=== PATIENT | female | born 1930 | race Caucasian/White ===

== ENCOUNTER 2017-09-06 01:09 | Emergency (ER) | payer MEDICARE, BC ==
[2017-09-06] MEDS ORDERED: Sodium Chloride 0.9% 10 ML Syringe FLUSH PRN (01:55)
[2017-09-06] MEDS ORDERED: Iopamidol 612 MG/ML 75 ML Bottle IVPUSH ONE (02:40)
[2017-09-06] MEDS ORDERED: Morphine 2 MG/ML Syringe IVPUSH ONE (02:45)
[2017-09-06] MEDS ORDERED: Ondansetron 4 MG/2 ML SDV IV ONE (02:45)
--- NOTE | 2017-09-06 03:38 | EDM.PDOC ---
ED HPI GENERAL MEDICAL PROBLEM - General Chief Complaint: Abdominal Pain Stated Complaint: SEVERE STOMACH PAIN [id number] Time Seen by Provider: 09/06/17 01:40 Source of Information: Reports: Patient History Limitations: Reports: No Limitations - History of Present Illness INITIAL COMMENTS - FREE TEXT/NARRATIVE: Patient comes emergency Department today with complaints of generalized abdominal pain and more in the right lower quadrant. Been going on for the past 2 days. She was seen in the clinic on Thursday and had some lab work and was told that there was no findings. She has continued abdominal pain. She did have bowel movement this morning which she states was somewhat small not hard and was easy to pass. She denies any fever or chills. She denies any chest pain shortness of breath or difficulty breathing. She denies any nausea or vomiting. She does complain of some bloating sensation. No heartburn. She denies any hematuria dysuria or urinary frequency. She has not tried any Tylenol or ibuprofen for her pain. Abdominal Pain Score (Numeric/FACES): 5 - Related Data Allergies Allergy/AdvReac Type Severity Reaction Status Date / Time codeine Allergy Other Verified 09/06/17 01:27 Penicillins Allergy Swelling Verified 09/06/17 01:27 Home Meds: Home Meds Aspirin 81 mg PO DAILY 09/06/17 [History] Hydrochlorothiazide 25 mg PO DAILY 09/06/17 [History] Lutein/Minerals/Vit A,C & E [Ocuvite] 1 tab PO DAILY 09/06/17 [History] Methyldopa 25 mg PO DAILY 09/06/17 [History] amLODIPine [Norvasc] 5 mg PO DAILY 09/06/17 [History] atorvaSTATin [Lipitor] 10 mg PO DAILY 09/06/17 [History] Past Medical History HEENT History: Reports: Impaired Vision Cardiovascular History: Reports: Hypertension Other Respiratory History: Abnormal CXR with CT done here in [place]. Seen specialist in [place] with another CT done. Told nothing to do right now but is to monitor and have another evaluation in 6 months. 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 eye - Past Surgical History HEENT Surgical History: Reports: Cataract Surgery GI Surgical History: Reports: Other (See Below) Other GI Surgeries/Procedures: hiatel hernia Musculoskeletal Surgical History: Reports: None Social & Family History - Family History Family Medical History: Noncontributory - Tobacco Use Smoking Status *Q: Never Smoker Second Hand Smoke Exposure: No - Recreational Drug Use Recreational Drug Use: No ED ROS GENERAL - Review of Systems Review Of Systems: ROS reveals no pertinent complaints other than HPI. ED EXAM, GI/ABD - Physical Exam Exam: See Below Exam Limited By: No Limitations General Appearance: Alert, WD/WN, No Apparent Distress Ears: Normal External Exam Nose: Normal Inspection Throat/Mouth: Normal Inspection, Normal Lips, Normal Teeth Head: Atraumatic, Normocephalic Neck: Normal Inspection, Supple, Non-Tender Respiratory/Chest: No Respiratory Distress, Lungs Clear, Normal Breath Sounds, No Accessory Muscle Use Cardiovascular: Normal Peripheral Pulses, Regular Rate, Rhythm GI/Abdominal Exam: Normal Bowel Sounds, Soft, Guarding, Rebound (Rebound tenderness throughout the abdomen.), Tender (Generalized tenderness throughout the abdomen.). No: Distended, Rigid, Hernia, Mass, Splenomegaly (Female) Exam: Deferred Rectal (Female) Exam: Deferred Back Exam: Normal Inspection, Full Range of Motion. No: CVA Tenderness (L), CVA Tenderness (R) Extremities: Normal Inspection, Normal Range of Motion, Non-Tender, No Pedal Edema Neurological: Alert, Oriented, CN II-XII Intact Psychiatric: Normal Affect, Normal Mood Skin Exam: Warm, Dry, Intact, Normal Color, No Rash Lymphatic: No Adenopathy Course - Vital Signs Last Recorded V/S: Last Vital Signs Temp 36.9 C 09/06/17 02:55 Pulse 69 09/06/17 02:55 Resp 16 09/06/17 02:55 BP 131/51 L 09/06/17 02:55 Pulse Ox 92 L 09/06/17 02:55 - Orders/Labs/Meds Orders: Active Orders 24 hr Category Date Time Status Peripheral IV Care [RC] . DIRECTED Care 09/06/17 01:55 Active Abdomen Pelvis w Cont [CT] Urgent Exams 09/06/17 01:55 Taken CULTURE URINE [RM] Stat Lab 09/06/17 03:28 Ordered Sodium Chloride 0.9% [Saline Flush] Med 09/06/17 01:55 Active 10 ml FLUSH ASDIRECTED PRN Peripheral IV Insertion Adult [OM.PC] Stat Oth 09/06/17 01:54 Ordered Medication Orders Sodium Chloride (Saline Flush) 10 ml FLUSH ASDIRECTED PRN PRN Reason: Keep Vein Open Last Admin: 09/06/17 02:52 Dose: 10 ml Labs: Laboratory Tests 09/06/17 09/06/17 09/06/17 Range/Units 01:35 01:45 01:45 WBC 11.5 H (5.0-10.0) 10^3/uL RBC 4.67 (4.2-5.4) 10^6/uL Hgb 13.6 (12.0-16.0) g/dL Hct 40.4 (37.0-47.0) % MCV 86.5 (80-100) fL MCH 29.1 (27.0-34.0) pg MCHC 33.7 (33.0-35.0) g/dL Plt Count 227 (150-450) 10^3/uL Neut % (Auto) 66.4 (42.2-75.2) % Lymph % (Auto) 19.0 L (20.5-50.1) % Geary % (Auto) 9.9 H (2-8) % Eos % (Auto) 4.0 H (1.0-3.0) % Baso % (Auto) 0.7 (0.0-1.0) % Sodium 137 (135-145) mmol/L Potassium 3.5 L (3.6-5.0) mmol/L Chloride 101 (101-111) mmol/L Carbon Dioxide 27.0 (21.0-31.0) mmol/L Anion Gap 12.5 BUN 21 H (7-18) mg/dL Creatinine 0.9 (0.6-1.3) mg/dL Est Cr Clr Drug Dosing 35.74 mL/min Estimated GFR (MDRD) 59 BUN/Creatinine Ratio 23.33 Glucose 104 (74-105) mg/dL Lactic Acid (0.5-2.2) mmol/L Calcium 9.1 (8.4-10.2) mg/dl Total Bilirubin 1.0 (0.2-1.0) mg/dL AST 25 (10-42) IU/L ALT 19 (10-60) IU/L Alkaline Phosphatase 58 (42-121) IU/L C-Reactive Protein (0.0-1.3) mg/dL Total Protein 7.0 (6.7-8.2) g/dl Albumin 4.1 (3.2-5.5) g/dl Globulin 2.9 Albumin/Globulin Ratio 1.41 Urine Color Yellow (YELLOW) Urine Appearance Cloudy (CLEAR) Urine pH 6.0 (5.0-9.0) Ur Specific Mansfield 1.015 (1.005-1.030) Urine Protein Negative (NEGATIVE) Urine Glucose (UA) Negative (NEGATIVE) Urine Ketones Negative (NEGATIVE) Urine Occult Blood Negative (NEGATIVE) Urine Nitrite Negative (NEGATIVE) Urine Bilirubin Negative (NEGATIVE) Urine Urobilinogen 0.2 (0.2-1.0) mg/dL Ur Leukocyte Esterase Trace H (NEGATIVE) Urine RBC 0-5 /HPF Urine WBC 5-10 H (0-5/HPF) /HPF Ur Epithelial Cells Many H /HPF Urine Bacteria Many H (0-FEW/HPF) /HPF Hyaline Casts Few H /LPF 09/06/17 09/06/17 Range/Units 01:45 01:45 WBC (5.0-10.0) 10^3/uL RBC (4.2-5.4) 10^6/uL Hgb (12.0-16.0) g/dL Hct (37.0-47.0) % MCV (80-100) fL MCH (27.0-34.0) pg MCHC (33.0-35.0) g/dL Plt Count (150-450) 10^3/uL Neut % (Auto) (42.2-75.2) % Lymph % (Auto) (20.5-50.1) % Geary % (Auto) (2-8) % Eos % (Auto) (1.0-3.0) % Baso % (Auto) (0.0-1.0) % Sodium (135-145) mmol/L Potassium (3.6-5.0) mmol/L Chloride (101-111) mmol/L Carbon Dioxide (21.0-31.0) mmol/L Anion Gap BUN (7-18) mg/dL Creatinine (0.6-1.3) mg/dL Est Cr Clr Drug Dosing mL/min Estimated GFR (MDRD) BUN/Creatinine Ratio Glucose (74-105) mg/dL Lactic Acid 0.9 (0.5-2.2) mmol/L Calcium (8.4-10.2) mg/dl Total Bilirubin (0.2-1.0) mg/dL AST (10-42) IU/L ALT (10-60) IU/L Alkaline Phosphatase (42-121) IU/L C-Reactive Protein 0.5 (0.0-1.3) mg/dL Total Protein (6.7-8.2) g/dl Albumin (3.2-5.5) g/dl Globulin Albumin/Globulin Ratio Urine Color (YELLOW) Urine Appearance (CLEAR) Urine pH (5.0-9.0) Ur Specific Mans[place] (1.005-1.030) Urine Protein (NEGATIVE) Urine Glucose (UA) (NEGATIVE) Urine Ketones (NEGATIVE) Urine Occult Blood (NEGATIVE) Urine Nitrite (NEGATIVE) Urine Bilirubin (NEGATIVE) Urine Urobilinogen (0.2-1.0) mg/dL Ur Leukocyte Esterase (NEGATIVE) Urine RBC /HPF Urine WBC (0-5/HPF) /HPF Ur Epithelial Cells /HPF Urine Bacteria (0-FEW/HPF) /HPF Hyaline Casts /LPF Meds: Medications Generic Name Dose Route Start Last Admin Trade Name Freq PRN Reason Stop Dose Admin Sodium Chloride 10 ml 09/06/17 01:55 09/06/17 02:52 Saline Flush FLUSH 10 ml ASDIRECTED PRN Administration Keep Vein Open Discontinued Medications Generic Name Dose Route Start Last Admin Trade Name Freq PRN Reason Stop Dose Admin Iopamidol 75 ml 09/06/17 02:40 09/06/17 02:41 Isovue-300 (61%) IVPUSH 09/06/17 02:41 75 ml ONETIME ONE Administration Morphine Sulfate 2 mg 09/06/17 02:45 09/06/17 02:54 Morphine IVPUSH 09/06/17 02:46 2 mg ONETIME ONE Administration Ondansetron HCl 4 mg 09/06/17 02:45 09/06/17 02:51 Zofran IV 09/06/17 02:46 4 mg ONETIME ONE Administration - Radiology Interpretation Free Text/Narrative:: CT abdomen and pelvis per radiology. Subtle stranding in the mesenteric fat of the right lower quadrant of the abdomen. Nonspecific. Appendix is not identified in this region. Sigmoid colon is near by but noninflamed diverticulum. epilpoic appendigitis would be a consideration. - Re-Assessments/Exams Free Text/Narrative Re-Assessment/Exam: 09/06/17 03:43 The patient did receive some morphine as well as Zofran with complete resolution of her abdominal pain. Her laboratory evaluation is rather unremarkable. I did relate the findings of the CT scan to the abdomen. I do see some constipation in the rectal vault or increased amount of stool as well as a stranding in the right lower quadrant. The treatment for epiploic appendigitis at this time would be nonsteroidal anti-inflammatories. I will also send her home with some MiraLAX for constipation which may help her pain as well. Any new or worse symptoms she has to be rechecked. Especially fever or increased pain and vomiting. She was comfortable with this plan and questions were answered. She was given some normal saline as well for hydration and to flush her kidneys following the contrast administration. Departure - Departure Time of Disposition: 03:32 Disposition: Home, Self-Care 01 Clinical Impression: Abdominal pain Qualifiers: Abdominal location: generalized Qualified Code(s): R10.84 - Generalized abdominal pain Constipation Qualifiers: Constipation type: unspecified constipation type Qualified Code(s): K59.00 - Constipation, unspecified - Discharge Information Instructions: Abdominal Pain, Adult, [id number], Pain Medicine Instructions, [id number], Constipation, Adult Additional Instructions: Ibuprofen 600mg by mouth every 8 hrs for four to six days. Take with food. Increase fluid intake over the next few days as well. Miralax OTC. 17grams or one capful in a large glass of water once a day until easy smooth bowel movement discontinue then. May also use Tylenol for pain as well. Return to the ED if new or worsening symptoms. Follow up with primary care provider in the next 6 days if not improving sooner if worse. - My Orders Last 24 Hours: My Active Orders 09/06/17 01:54 Peripheral IV Insertion Adult [OM.PC] Stat 09/06/17 01:55 Peripheral IV Care [RC] . DIRECTED Abdomen Pelvis w Cont [CT] Urgent Sodium Chloride 0.9% [Saline Flush] 10 ml FLUSH ASDIRECTED PRN 09/06/17 03:28 CULTURE URINE [RM] Stat - Assessment/Plan Last 24 Hours: My Active Orders 09/06/17 01:54 Peripheral IV Insertion Adult [OM.PC] Stat 09/06/17 01:55 Peripheral IV Care [RC] . DIRECTED Abdomen Pelvis w Cont [CT] Urgent Sodium Chloride 0.9% [Saline Flush] 10 ml FLUSH ASDIRECTED PRN 09/06/17 03:28 CULTURE URINE [RM] Stat Assessment:: RLQ pain, normal appendix on CT, ? epiplogic appendigitis. Constipation. Plan: Ibuprofen 600mg by mouth every 8 hrs for four to six days. Take with food. Increase fluid intake over the next few days as well. Miralax OTC. 17grams or one capful in a large glass of water once a day until easy smooth bowel movement discontinue then. May also use Tylenol for pain as well. Return to the ED if new or worsening symptoms. Follow up with primary care provider in the next 6 days if not improving sooner if worse.
[2017-09-06] MEDS ORDERED: Sodium Chloride 0.9% 1,000 ML IV ONE (03:39)
[2017-09-06] MEDS ORDERED: Sodium Chloride 0.9% 500 ML IV SCH (03:45)
[2017-09-06 04:05] VITALS: BP 120/49
== END 2017-09-06 04:23 | disposition home or self-care (01) ==
LOC: DL.ED 01:09
DX: K59.00 Constipation, unspecified (principal); I10 Essential (primary) hypertension; Z79.82 Long term (current) use of aspirin; Z79.899 Other long term (current) drug therapy; Z88.0 Allergy status to penicillin; Z88.5 Allergy status to narcotic agent
CPT/HCPCS: 36415; 74177; 80053; 81001; 83605; 85025; 86140; 87086; 96365; 96375; 99284; J2270; J2405; J7030; J7050; Q9967

== ENCOUNTER 2017-09-07 16:46 | Inpatient (IN) | payer MEDICARE, BC ==
--- NOTE | 2017-09-07 17:04 | EDM.PDOC ---
<Estephania Dowd - Last Filed: 09/07/17 18:26> ED HPI GENERAL MEDICAL PROBLEM - General Chief Complaint: Gastrointestinal Problem Stated Complaint: UNABLE TO POOP [id number] Time Seen by Provider: 09/07/17 17:04 Source of Information: Reports: Patient Bilateral Lower Abdomen Pain Score (Numeric/FACES): 4 - Related Data Allergies Allergy/AdvReac Type Severity Reaction Status Date / Time codeine Allergy Other Verified 09/07/17 16:51 Penicillins Allergy Swelling Verified 09/07/17 16:51 Home Meds: Home Meds Aspirin 81 mg PO DAILY 09/06/17 [History] Hydrochlorothiazide 25 mg PO DAILY 09/06/17 [History] Lutein/Minerals/Vit A,C & E [Ocuvite] 1 tab PO DAILY 09/06/17 [History] Methyldopa 25 mg PO DAILY 09/06/17 [History] amLODIPine [Norvasc] 5 mg PO DAILY 09/06/17 [History] atorvaSTATin [Lipitor] 10 mg PO DAILY 09/06/17 [History] Past Medical History HEENT History: Reports: Impaired Vision Cardiovascular History: Reports: Hypertension Other Respiratory History: Abnormal CXR with CT done here in . Seen specialist in [place] with another CT done. Told nothing to do right now but is to monitor and have another evaluation in 6 months. 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 eye - Past Surgical History HEENT Surgical History: Reports: Cataract Surgery GI Surgical History: Reports: Other (See Below) Other GI Surgeries/Procedures: hiatel hernia Musculoskeletal Surgical History: Reports: None Social & Family History - Family History Family Medical History: Noncontributory - Tobacco Use Smoking Status *Q: Never Smoker Second Hand Smoke Exposure: No - Recreational Drug Use Recreational Drug Use: No EKG INTERPRETATION EKG Date: 09/07/17 Time: 17:27 Rhythm: Other (sinus rhythm/LBBB) Rate (Beats/Min): 72 Comparison: NA - No Prior EKG Course - Vital Signs Last Recorded V/S: Last Vital Signs Temp 37.3 C 09/07/17 16:48 Pulse 87 09/07/17 16:48 Resp 18 09/07/17 16:48 BP 167/71 H 09/07/17 16:57 Pulse Ox 95 09/07/17 16:48 - Orders/Labs/Meds Orders: Active Orders 24 hr Category Date Time Status EKG Documentation Completion [RC] STAT Care 09/07/17 17:22 Active Peripheral IV Care [RC] . DIRECTED Care 09/07/17 17:19 Active Abdomen Pelvis w Cont [CT] Urgent Exams 09/07/17 18:22 Taken Sodium Chloride 0.9% [Saline Flush] Med 09/07/17 17:19 Active 10 ml FLUSH ASDIRECTED PRN Peripheral IV Insertion Adult [OM.PC] Stat Oth 09/07/17 17:19 Ordered Medication Orders Sodium Chloride (Saline Flush) 10 ml FLUSH ASDIRECTED PRN PRN Reason: Keep Vein Open Last Admin: 09/07/17 21:09 Dose: 10 ml Labs: Laboratory Tests 09/07/17 09/07/17 09/07/17 Range/Units 17:26 17:26 17:26 WBC 14.6 H (5.0-10.0) 10^3/uL RBC 4.81 (4.2-5.4) 10^6/uL Hgb 14.0 (12.0-16.0) g/dL Hct 41.5 (37.0-47.0) % MCV 86.3 (80-100) fL MCH 29.1 (27.0-34.0) pg MCHC 33.7 (33.0-35.0) g/dL Plt Count 225 (150-450) 10^3/uL Neut % (Auto) 68.7 (42.2-75.2) % Lymph % (Auto) 17.7 L (20.5-50.1) % Morrow % (Auto) 9.7 H (2-8) % Eos % (Auto) 3.5 H (1.0-3.0) % Baso % (Auto) 0.4 (0.0-1.0) % ESR (0-20) mm/hr Sodium 131 L (135-145) mmol/L Potassium 3.6 (3.6-5.0) mmol/L Chloride 94 L (101-111) mmol/L Carbon Dioxide 28.0 (21.0-31.0) mmol/L Anion Gap 12.6 BUN 21 H (7-18) mg/dL Creatinine 1.1 (0.6-1.3) mg/dL Est Cr Clr Drug Dosing 29.24 mL/min Estimated GFR (MDRD) 47 BUN/Creatinine Ratio 19.09 Glucose 102 (74-105) mg/dL Lactic Acid (0.5-2.2) mmol/L Calcium 9.8 (8.4-10.2) mg/dl Total Bilirubin 0.7 (0.2-1.0) mg/dL AST 28 (10-42) IU/L ALT 20 (10-60) IU/L Alkaline Phosphatase 67 (42-121) IU/L Creatine Kinase 95 (26-174) IU/L Creatine Kinase Index 2.4 (0-2.4) % CK-MB (CK-2) 2.30 (0.4-4.7) ng/mL Troponin I < 0.02 (0.00-0.02) ng/ml C-Reactive Protein (0.0-1.3) mg/dL Total Protein 7.6 (6.7-8.2) g/dl Albumin 4.2 (3.2-5.5) g/dl Globulin 3.4 Albumin/Globulin Ratio 1.24 09/07/17 09/07/17 09/07/17 Range/Units 17:26 17:26 19:19 WBC (5.0-10.0) 10^3/uL RBC (4.2-5.4) 10^6/uL Hgb (12.0-16.0) g/dL Hct (37.0-47.0) % MCV (80-100) fL MCH (27.0-34.0) pg MCHC (33.0-35.0) g/dL Plt Count (150-450) 10^3/uL Neut % (Auto) (42.2-75.2) % Lymph % (Auto) (20.5-50.1) % Morrow % (Auto) (2-8) % Eos % (Auto) (1.0-3.0) % Baso % (Auto) (0.0-1.0) % ESR 20 (0-20) mm/hr Sodium (135-145) mmol/L Potassium (3.6-5.0) mmol/L Chloride (101-111) mmol/L Carbon Dioxide (21.0-31.0) mmol/L Anion Gap BUN (7-18) mg/dL Creatinine (0.6-1.3) mg/dL Est Cr Clr Drug Dosing mL/min Estimated GFR (MDRD) BUN/Creatinine Ratio Glucose (74-105) mg/dL Lactic Acid 0.7 (0.5-2.2) mmol/L Calcium (8.4-10.2) mg/dl Total Bilirubin (0.2-1.0) mg/dL AST (10-42) IU/L ALT (10-60) IU/L Alkaline Phosphatase (42-121) IU/L Creatine Kinase (26-174) IU/L Creatine Kinase Index (0-2.4) % CK-MB (CK-2) (0.4-4.7) ng/mL Troponin I (0.00-0.02) ng/ml C-Reactive Protein 3.6 H (0.0-1.3) mg/dL Total Protein (6.7-8.2) g/dl Albumin (3.2-5.5) g/dl Globulin Albumin/Globulin Ratio Meds: Medications Generic Name Dose Route Start Last Admin Trade Name Freq PRN Reason Stop Dose Admin Sodium Chloride 10 ml 09/07/17 17:19 09/07/17 21:09 Saline Flush FLUSH 10 ml ASDIRECTED PRN Administration Keep Vein Open Discontinued Medications Generic Name Dose Route Start Last Admin Trade Name Freq PRN Reason Stop Dose Admin Sodium Chloride 1,000 mls @ 999 mls/hr 09/07/17 18:48 09/07/17 19:24 Normal Saline IV 09/07/17 19:48 999 mls/hr .BOLUS ONE Administration Iopamidol 75 ml 09/07/17 18:24 09/07/17 19:04 Isovue-300 (61%) IVPUSH 09/07/17 18:25 75 ml ONETIME ONE Administration Morphine Sulfate 2 mg 09/07/17 21:02 09/07/17 21:08 Morphine IVPUSH 09/07/17 21:03 2 mg ONETIME ONE Administration Departure - Departure Disposition: Home, Self-Care 01 Clinical Impression: Epiploic appendagitis - Discharge Information Forms: ED Department Discharge <Nando Barajas - Last Filed: 09/07/17 21:17> ED HPI GENERAL MEDICAL PROBLEM - General Source of Information: Reports: Family History Limitations: Reports: No Limitations - History of Present Illness INITIAL COMMENTS - FREE TEXT/NARRATIVE: Patient comes emergency Department with complaints of abdominal pain. I personally saw this patient 24 hours ago in the emergency department for abdominal pain that has been going on since . She was seen in the clinic on Thursday as well as the emergency department by myself. She was complaining of abdominal pain throughout her abdomen. No fever no chills no nausea no vomiting. She had a CT scan that showed inflammatory stranding in the right lower quadrant consistent with epiploic appendigitis. She was sent home with nonsteroidal anti-inflammatories as a management strategy. She has not really tried any of the therapies as prescribed previously(she has had no fever no chills. No nausea no vomiting. She has not had a bowel movement for a couple of days. Her pain is really not gotten any worse. She is able to tolerate oral fluids as well as solids. She is just concerned that her pain is continuing. She cannot live with this pain she reports. ED ROS GENERAL - Review of Systems Review Of Systems: ROS reveals no pertinent complaints other than HPI. ED EXAM, GI/ABD - Physical Exam Exam: See Below Exam Limited By: No Limitations General Appearance: Alert, WD/WN, No Apparent Distress Eyes: Bilateral: Normal Appearance Ears: Normal External Exam, Normal Canal Nose: Normal Inspection, Normal Mucosa Throat/Mouth: Normal Inspection, Normal Lips, Normal Teeth, Normal Oropharynx Head: Atraumatic, Normocephalic Neck: Normal Inspection, Supple, Non-Tender Respiratory/Chest: No Respiratory Distress, Lungs Clear, No Accessory Muscle Use Cardiovascular: Normal Peripheral Pulses, Regular Rate, Rhythm GI/Abdominal Exam: Soft, No Organomegaly, No Distention, No Abnormal Bruit, Rebound (Rebound tenderness primarily in the right upper and right lower quadrant.), Tender (Generalized tenderness throughout the abdomen more in the right lower quadrant.), Abnormal Bowel Sounds (Decreased bowel sounds.). No: Guarding (Female) Exam: Deferred Rectal (Female) Exam: Deferred Back Exam: Normal Inspection, Full Range of Motion Extremities: Normal Inspection, Normal Range of Motion, Non-Tender, Normal Capillary Refill Neurological: Alert, Oriented, CN II-XII Intact, No Motor/Sensory Deficits Psychiatric: Normal Affect Skin Exam: Warm, Dry, Intact, Normal Color Course - Radiology Interpretation Free Text/Narrative:: Per radiology. Localized inflammation in the mesenteric fat. Differential diagnosis includes sclerosing mesenteritis and epiploic appendigitis. Not changed significantly when compared to CT abdomen and pelvis on 09-06-17. Departure - Departure Time of Disposition: 21:15 ED Communication - Discussed Case With (1) Discussed Case With (1): Admitting Provider (Disccussed the case with Dr. Ashton at [place] who had me speak with Dr. Morris the surgeon. Dr. Morris says no surgery needed at this time or very rarely at all. Medical management only, antibiotics and NSAIDS. Dr. Queen spoke with Dr. Potter on the phone and Dr. 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 Constipation. Plan: Admit observation Dr. Queen for further care and management.
[2017-09-07] MEDS ORDERED: Sodium Chloride 0.9% 10 ML Syringe FLUSH PRN (17:19)
[2017-09-07 17:53] LABS: CHLORIDE,CL 94 mmol/L (101-111); SODIUM,NA 131 mmol/L (135-145)
[2017-09-07] MEDS ORDERED: Iopamidol 612 MG/ML 75 ML Bottle IVPUSH ONE (18:24)
[2017-09-07] MEDS ORDERED: Sodium Chloride 0.9% 1,000 ML IV ONE (18:48)
[2017-09-07] MEDS ORDERED: Morphine 2 MG/ML Syringe IVPUSH ONE (21:02)
[2017-09-07] MEDS ORDERED: Benzocaine/Docusate Sodium 20-283 MG/5 ML Enema RECTAL ONE (22:12)
[2017-09-07] MEDS ORDERED: NS + KCl 20mEq/L 1,000 ML IV SCH (22:15)
[2017-09-07] MEDS ORDERED: Polyethylene Glycol 3350 Powder 17 GM Packet PO PRN (22:16)
[2017-09-07] MEDS ORDERED: Zolpidem 5 MG Tab PO PRN (22:16)
--- NOTE | 2017-09-07 22:32 | PCM.HP ---
H&P History of Present Illness - General Date of Service: 09/07/17 Admit Problem/Dx: Admission Diagnosis/Problem Admission Diagnosis/Problem Abdominal pain Source of Information: Patient - History of Present Illness Initial Comments - Free Text/Narative: The patient is an 87-year-old lady with a history of hypertension She usually has regular bowel movements. She developed a pulmonary discomfort in bilateral lower quadrants about a week prior to this admission. This is associated with constipation, last bowel movement about 5 days prior to this admission. She denies any associated fever, no chills, no shortness of breath, no chest pain. The patient was seen in the emergency room and a CT of the abdomen showed mesenteric inflammation. She was sent home to take nonsteroidal pain medication but after 1 day of such therapy due to pain did not improve and the patient came into the emergency room. Bilateral Lower Abdomen Pain Score (Numeric/FACES): 4 - Related Data Allergies/Adverse Reactions: Allergies Allergy/AdvReac Type Severity Reaction Status Date / Time codeine Allergy Other Verified 09/07/17 16:51 Penicillins Allergy Swelling Verified 09/07/17 16:51 Home Medications: Home Meds Aspirin 81 mg PO DAILY 09/06/17 [History] Hydrochlorothiazide 25 mg PO DAILY 09/06/17 [History] Lutein/Minerals/Vit A,C & E [Ocuvite] 1 tab PO DAILY 09/06/17 [History] Methyldopa 250 mg PO DAILY 09/06/17 [History] amLODIPine [Norvasc] 5 mg PO DAILY 09/06/17 [History] atorvaSTATin [Lipitor] 10 mg PO DAILY 09/06/17 [History] Past Medical History HEENT History: Reports: Impaired Vision Cardiovascular History: Reports: Hypertension Other Respiratory History: Abnormal CXR with CT done here in . Seen specialist in [place] with another CT done. Told nothing to do right now but is to monitor and have another evaluation in 6 months. Gastrointestinal History: Reports: Hiatal Hernia [employer] History: Reports: Musculoskeletal History: Reports: Arthritis Neurological History: Reports: Other (See Below) Other Neuro History: bells palsey Rt. eye - Past Surgical History HEENT Surgical History: Reports: Cataract Surgery GI Surgical History: Reports: Other (See Below) Other GI Surgeries/Procedures: hiatel hernia Musculoskeletal Surgical History: Reports: None Social & Family History - Family History Family Medical History: Noncontributory - Tobacco Use Smoking Status *Q: Never Smoker Second Hand Smoke Exposure: No - Recreational Drug Use Recreational Drug Use: No H&P Review of Systems - Review of Systems: Review Of Systems: See Below General: Denies: Fever, Chills Pulmonary: Denies: Shortness of Breath Cardiovascular: Reports: Edema (Trace bilateral). Denies: Chest Pain Gastrointestinal: Denies: Abdominal Pain Psychiatric: Denies: Confusion Exam - Exam Exam: See Below - Vital Signs Vital Signs: Last Vital Signs Temp 37.1 C 09/07/17 21:23 Pulse 75 09/07/17 21:23 Resp 18 09/07/17 21:23 BP 169/76 H 09/07/17 21:23 Pulse Ox 98 09/07/17 21:23 Weight: 76.657 kg - Exam Quality Assessment: No: Supplemental Oxygen General: Alert, Oriented Neck: Supple Lungs: Clear to Auscultation, Normal Respiratory Effort Cardiovascular: Regular Rate, Regular Rhythm GI/Abdominal Exam: No Distention, Tender (Diffuse tenderness) Extremities: Pedal Edema (Trace bilateral) Neuro Extensive - Mental Status: Alert, Oriented x3, Normal Mood/Affect - Patient Data Result Diagrams: 09/07/17 17:26 09/07/17 17:26 EKG INTERPRETATION EKG Date: 09/07/17 Rhythm: NSR *Q Meaningful Use (ADM) - VTE *Q VTE Criteria *Q: - Stroke *Q Stroke Criteria *Q: - AMI *Q AMI Criteria *Q: - Problem List (1) Abdominal pain SNOMED Code(s): 40517114 ICD Code: R10.9 - UNSPECIFIED ABDOMINAL PAIN Status: Acute Current Visit : No Qualifiers: Abdominal location: generalized Qualified Code(s): R10.84 - Generalized abdominal pain Problem List Initiated/Reviewed/Updated: Yes Orders Last 24hrs: Active Orders 24 hr Category Date Time Status Patient Status [ADT] Routine ADT 09/07/17 22:16 Ordered Antiembolic Devices [RC] PER UNIT ROUTINE Care 09/07/17 22:20 Ordered Oxygen Therapy [RC] PRN Care 09/07/17 22:17 Ordered Up With Assistance [RC] ASDIRECTED Care 09/07/17 22:16 Ordered VTE/DVT Education [RC] PER UNIT ROUTINE Care 09/07/17 22:16 Ordered Vital Signs [RC] Q4H Care 09/07/17 22:16 Ordered Regular Diet [DIET] Diet 09/07/17 Breakfast Ordered BASIC METABOLIC PANEL,BMP [CHEM] AM Lab 09/08/17 05:11 Ordered CBC WITH AUTO DIFF [HEME] AM Lab 09/08/17 05:11 Ordered CULTURE BLOOD [BC] Stat Lab 09/07/17 22:11 Ordered CULTURE BLOOD [BC] Stat Lab 09/07/17 22:11 Ordered CULTURE URINE [RM] Routine Lab 09/07/17 22:21 Ordered UA W/MICROSCOPIC [URIN] Routine Lab 09/07/17 22:21 Ordered Heparin Sodium Med 09/08/17 06:00 Ordered 5,000 units SUBCUT Q8HR Hydrochlorothiazide Med 09/08/17 09:00 Ordered 25 mg PO DAILY Ibuprofen [Motrin] Med 09/08/17 09:00 Ordered 600 mg PO TID Lactulose [Cephulac] Med 09/08/17 22:30 Ordered 20 gm PO TID Methyldopa Med 09/08/17 09:00 Ordered 250 mg PO DAILY Morphine Med 09/07/17 22:15 Ordered 1 mg IVPUSH Q4H PRN Pantoprazole [ProTONIX] Med 09/08/17 06:00 Ordered 40 mg PO BIDAC Polyethylene Glycol 3350 [MiraLAX] Med 09/07/17 22:16 Ordered 17 gm PO DAILY PRN Sodium Chloride 0.9% with KCl 20 mEq @ 75 mL/Hr (1000 Med 09/07/17 22:15 Ordered mL) NS + KCl 20mEq/L [Normal Saline with 20 mEq KCl] 1,000 ml IV ASDIRECTED Zolpidem [Ambien] Med 09/07/17 22:16 Ordered 5 mg PO BEDTIME PRN amLODIPine [Norvasc] Med 09/08/17 09:00 Ordered 5 mg PO DAILY atorvaSTATin [Lipitor] Med 09/08/17 09:00 Ordered 10 mg PO DAILY metroNIDAZOLE/Normal Saline [Flagyl 500 MG in NS 100 ML Med 09/07/17 22:15 Ordered ] 500 mg Premix Bag 100 bag IV Q8H Antiembolic Hose [OM.PC] Per Unit Routine Oth 09/07/17 22:19 Ordered Blood Culture x2 Reflex Set [OM.PC] Stat Oth 09/07/17 22:11 Ordered Resuscitation Status Routine Resus Stat 09/07/17 22:16 Ordered Medication Orders Atorvastatin Calcium (Lipitor) 10 mg PO DAILY [facility] Heparin Sodium (Porcine) (Heparin Sodium) 5,000 units SUBCUT Q8HR DION Hydrochlorothiazide (Hydrochlorothiazide) 25 mg PO DAILY [facility] Metronidazole 500 mg/ Premix 100 mls @ 100 mls/hr IV Q8H DION Potassium Chloride/Sodium Chloride (Normal Saline With 20 Meq Kcl) 1,000 mls @ 75 mls/hr IV ASDIRECTED DION Ibuprofen (Motrin) 600 mg PO TID DION Lactulose (Cephulac) 20 gm PO TID DION Methyldopa (Methyldopa) 250 mg PO DAILY DION Morphine Sulfate (Morphine) 1 mg IVPUSH Q4H PRN PRN Reason: pain 4-10 Non-Formulary Medication (Amlodipine [Norvasc]) 5 mg PO DAILY [facility] Pantoprazole Sodium (Protonix) 40 mg PO BIDAC DION Polyethylene Glycol (Miralax) 17 gm PO DAILY PRN PRN Reason: Constipation Sodium Chloride (Saline Flush) 10 ml FLUSH ASDIRECTED PRN PRN Reason: Keep Vein Open Last Admin: 09/07/17 21:09 Dose: 10 ml Zolpidem Tartrate (Ambien) 5 mg PO BEDTIME PRN PRN Reason: Sleep Assessment/Plan Comment:: The patient is an 81-year-old lady who presented with about 1 week history of abdominal pain. This is associated with leukocytosis. CT of the abdomen showed mesenteritis. #1 abdominal pain Discussed the case with the emergency room provider and Dr. Morris from surgery They're recommending nonsteroidal use. I'm concerned that there is a possible infectious component. I will obtain blood culture. Also start metronidazole IV. There is a component of constipation. Use lactulose, enema Will hydrate the patient #2 hypertension Continue home medications and adjust as needed #3 DVT prophylaxis with subcutaneous heparin
[2017-09-07] MEDS: Morphine 2 MG/ML Syringe IVPUSH PRN (22:37)
[2017-09-07] MEDS: metroNIDAZOLE/Normal Saline 500 MG in Premix Bag 100 BAG IV SCH (22:39)
[2017-09-08] MEDS: Heparin Sodium 5,000 Units/ML Vial SUBCUT SCH ×3 (05:41→21:13)
[2017-09-08] MEDS: metroNIDAZOLE/Normal Saline 500 MG in Premix Bag 100 BAG IV SCH ×3 (05:44→22:34)
[2017-09-08] MEDS: Pantoprazole 40 MG Tab.CR PO SCH ×2 (06:30→17:50)
[2017-09-08] MEDS: Ibuprofen 600 MG Tab PO SCH ×3 (08:58→21:13)
[2017-09-08] MEDS: atorvaSTATin 10 MG Tab PO SCH (08:58)
[2017-09-08] MEDS: Hydrochlorothiazide 25 MG Tab PO SCH (08:59)
[2017-09-08] MEDS: amLODIPine 5 MG Tab PO SCH (08:59)
--- NOTE | 2017-09-08 09:36 | PCM.PN ---
- General Info Date of Service: 09/08/17 Admission Dx/Problem (Free Text): Admission Diagnosis/Problem Admission Diagnosis/Problem Abdominal pain Subjective Update: The abdominal pain has much improved. She had to bowel movements. She is feeling much better. She was eating breakfast well. Functional Status: Reports: Pain Controlled - Review of Systems General: Denies: Fever Pulmonary: Denies: Shortness of Breath Cardiovascular: Denies: Chest Pain Gastrointestinal: Reports: Abdominal Pain (Much improved). Denies: Constipation , Nausea, Vomiting Neurological: Denies: Confusion - Patient Data Vitals - Most Recent: Last Vital Signs Temp 36.7 C 09/08/17 07:46 Pulse 74 09/08/17 07:46 Resp 20 09/08/17 07:46 BP 126/58 L 09/08/17 08:59 Pulse Ox 96 09/08/17 07:46 Weight - Most Recent: 76.657 kg I&O - Last 24 Hours: Intake & Output 09/07/17 09/08/17 09/08/17 22:59 06:59 14:59 Intake Total 100 Output Total 900 Balance -800 Lab Results Last 24 Hours: Laboratory Results - last 24 hr 09/08/17 09/08/17 09/08/17 Range/Units 06:25 06:25 07:23 WBC 9.5 (5.0-10.0) 10^3/uL RBC 4.07 L (4.2-5.4) 10^6/uL Hgb 11.9 L D (12.0-16.0) g/dL Hct 35.6 L (37.0-47.0) % MCV 87.5 (80-100) fL MCH 29.2 (27.0-34.0) pg MCHC 33.4 (33.0-35.0) g/dL Plt Count 197 (150-450) 10^3/uL Neut % (Auto) 73.6 (42.2-75.2) % Lymph % (Auto) 14.5 L (20.5-50.1) % [place] % (Auto) 8.8 H (2-8) % Eos % (Auto) 2.5 (1.0-3.0) % Baso % (Auto) 0.6 (0.0-1.0) % Sodium 133 L (135-145) mmol/L Potassium 3.7 (3.6-5.0) mmol/L Chloride 97 L (101-111) mmol/L Carbon Dioxide 28.0 (21.0-31.0) mmol/L Anion Gap 11.7 BUN 16 (7-18) mg/dL Creatinine 0.9 (0.6-1.3) mg/dL Est Cr Clr Drug Dosing 35.74 mL/min Estimated GFR (MDRD) 59 Glucose 94 (74-105) mg/dL Calcium 8.6 (8.4-10.2) mg/dl Urine Color Yellow (YELLOW) Urine Appearance Cloudy (CLEAR) Urine pH 6.0 (5.0-9.0) Ur Specific [place] 1.015 (1.005-1.030) Urine Protein Negative (NEGATIVE) Urine Glucose (UA) Negative (NEGATIVE) Urine Ketones 15 H (NEGATIVE) Urine Occult Blood Negative (NEGATIVE) Urine Nitrite Negative (NEGATIVE) Urine Bilirubin Negative (NEGATIVE) Urine Urobilinogen 0.2 (0.2-1.0) mg/dL Ur Leukocyte Esterase Negative (NEGATIVE) Urine RBC 0-5 /HPF Urine WBC 0-5 (0-5/HPF) /HPF Ur Epithelial Cells Moderate H /HPF Urine Bacteria Few (0-FEW/HPF) /HPF Edilberto Results Last 24 Hours: Microbiology 09/07/17 22:40 Anaerobic Blood Culture - Final Blood - Venous Med Orders - Current: Current Medications Amlodipine Besylate (Norvasc) 5 mg PO DAILY [facility] Last Admin: 09/08/17 08:59 Dose: 5 mg Atorvastatin Calcium (Lipitor) 10 mg PO DAILY [facility] Last Admin: 09/08/17 08:58 Dose: 10 mg Heparin Sodium (Porcine) (Heparin Sodium) 5,000 units SUBCUT Q8HR [facility] Last Admin: 09/08/17 05:41 Dose: 5,000 units Hydrochlorothiazide (Hydrochlorothiazide) 25 mg PO DAILY [facility] Last Admin: 09/08/17 08:59 Dose: 25 mg Metronidazole 500 mg/ Premix 100 mls @ 100 mls/hr IV Q8H [facility] Last Infusion: 09/08/17 06:57 Dose: Infused Potassium Chloride/Sodium Chloride (Normal Saline With 20 Meq Kcl) 1,000 mls @ 75 mls/hr IV ASDIRECTED [facility] Last Admin: 09/07/17 22:40 Dose: 75 mls/hr Ibuprofen (Motrin) 600 mg PO TID [facility] Last Admin: 09/08/17 08:58 Dose: 600 mg Lactulose (Cephulac) 20 gm PO TID [facility] Methyldopa (Methyldopa) 250 mg PO DAILY [facility] Last Admin: 09/08/17 08:59 Dose: 250 mg Morphine Sulfate (Morphine) 1 mg IVPUSH Q4H PRN PRN Reason: pain 4-10 Last Admin: 09/07/17 22:37 Dose: 1 mg Pantoprazole Sodium (Protonix) 40 mg PO BIDAC [facility] Last Admin: 09/08/17 06:30 Dose: 40 mg Polyethylene Glycol (Miralax) 17 gm PO DAILY PRN PRN Reason: Constipation Sodium Chloride (Saline Flush) 10 ml FLUSH ASDIRECTED PRN PRN Reason: Keep Vein Open Last Admin: 09/07/17 21:09 Dose: 10 ml Zolpidem Tartrate (Ambien) 5 mg PO BEDTIME PRN PRN Reason: Sleep Discontinued Medications Docusate Sodium/Benzocaine (Enemeez Plus Mini Enema) 1 each RECTAL ONETIME ONE Stop: 09/07/17 22:13 Last Admin: 09/07/17 22:39 Dose: 1 each Sodium Chloride (Normal Saline) 1,000 mls @ 999 mls/hr IV .BOLUS ONE Stop: 09/07/17 19:48 Last Admin: 09/07/17 19:24 Dose: 999 mls/hr Iopamidol (Isovue-300 (61%)) 75 ml IVPUSH ONETIME ONE Stop: 09/07/17 18:25 Last Admin: 09/07/17 19:04 Dose: 75 ml Morphine Sulfate (Morphine) 2 mg IVPUSH ONETIME ONE Stop: 09/07/17 21:03 Last Admin: 09/07/17 21:08 Dose: 2 mg - Exam General: Alert, Oriented Lungs: Clear to Auscultation, Normal Respiratory Effort Cardiovascular: Regular Rate, Regular Rhythm GI/Abdominal Exam: Normal Bowel Sounds, Soft, No Distention, Other (Mild diffuse tenderness) Extremities: No Pedal Edema - Problem List & Annotations (1) Abdominal pain SNOMED Code(s): 97417812 Code(s): R10.9 - UNSPECIFIED ABDOMINAL PAIN Status: Acute Current Visit: No Qualifiers: Abdominal location: generalized Qualified Code(s): R10.84 - Generalized abdominal pain - Problem List Review Problem List Initiated/Reviewed/Updated: Yes - My Orders Last 24 Hours: My Active Orders 09/08/17 07:15 CULTURE URINE [RM] Routine 09/08/17 09:00 Hydrochlorothiazide 25 mg PO DAILY Methyldopa 250 mg PO DAILY amLODIPine [Norvasc] 5 mg PO DAILY atorvaSTATin [Lipitor] 10 mg PO DAILY 09/09/17 05:15 BASIC METABOLIC PANEL,BMP [CHEM] AM CBC WITH AUTO DIFF [HEME] AM - Plan Plan:: The patient is an 81-year-old lady who presented with about 1 week history of abdominal pain. This is associated with leukocytosis. CT of the abdomen showed mesenteritis. #1 abdominal pain Discussed the case with the emergency room provider and Dr. Morris from surgery They're recommending nonsteroidal use. I'm concerned that there is a possible infectious component. blood culture pending Leukocytosis has resolved Continue metronidazole IV. There is a component of constipation. Resolved with the use lactulose, enema Eating well, stop IV fluids Monitor for further pain #2 hypertension Continue home medications and adjust as needed #3 DVT prophylaxis with subcutaneous heparin
[2017-09-08] MEDS: Lactulose Soln 10 GM/15 ML 30 ML UD Cup PO SCH ×2 (21:14→22:10)
[2017-09-09] MEDS: Morphine 2 MG/ML Syringe IVPUSH PRN (03:00)
[2017-09-09] MEDS: metroNIDAZOLE/Normal Saline 500 MG in Premix Bag 100 BAG IV SCH (06:09)
[2017-09-09] MEDS: Pantoprazole 40 MG Tab.CR PO SCH (06:09)
[2017-09-09] MEDS: Heparin Sodium 5,000 Units/ML Vial SUBCUT SCH (06:09)
[2017-09-09 07:03] LABS: CHLORIDE,CL 98 mmol/L (101-111); SODIUM,NA 134 mmol/L (135-145)
[2017-09-09 08:05] VITALS: BP 137/56
[2017-09-09] MEDS: Ibuprofen 600 MG Tab PO SCH (09:43)
[2017-09-09] MEDS: Hydrochlorothiazide 25 MG Tab PO SCH (09:46)
[2017-09-09] MEDS: atorvaSTATin 10 MG Tab PO SCH (09:47)
[2017-09-09] MEDS: Lactulose Soln 10 GM/15 ML 30 ML UD Cup PO SCH (09:48)
[2017-09-09] MEDS: amLODIPine 5 MG Tab PO SCH (09:48)
--- NOTE | 2017-09-09 09:55 | PCM.DCSUM1 ---
Discharge Summary - Hospital Course Free Text/Narrative:: The patient is an 81-year-old lady who presented with about 1 week history of abdominal pain. This is associated with leukocytosis. CT of the abdomen showed mesenteritis. #1 abdominal pain Discussed the case with the emergency room provider and Dr. Morris from surgery They're recommending nonsteroidal use for pain control. There is a component of constipation. Resolved with the use lactulose, enema I was concerned that there is a possible infectious component. started metronidazole - will finish as PO Leukocytosis has resolved blood culture pending Eating well, was discharged home to follow-up with her primary care physician - Discharge Data Discharge Date: 09/09/17 Discharge Disposition: Home, Self-Care 01 Condition: Fair - Discharge Diagnosis/Problem(s) (1) Abdominal pain SNOMED Code(s): 31438885 ICD Code: R10.9 - UNSPECIFIED ABDOMINAL PAIN Status: Acute Current Visit : No Qualifiers: Abdominal location: generalized Qualified Code(s): R10.84 - Generalized abdominal pain - Patient Instructions Diet: Usual Diet as Tolerated Activity: As Tolerated - Discharge Plan Prescriptions/Med Rec: Ibuprofen [IJD: Ibuprofen] 600 mg PO TID PRN #30 tablet PRN Reason: Pain metroNIDAZOLE [Flagyl] 500 mg PO Q8H #15 tab Pantoprazole [ProTONIX] 40 mg PO DAILY 14 Days #14 tab.cr Home Medications: Home Meds Aspirin 81 mg PO DAILY 09/06/17 [History] Hydrochlorothiazide 25 mg PO DAILY 09/06/17 [History] Lutein/Minerals/Vit A,C & E [Ocuvite] 1 tab PO DAILY 09/06/17 [History] Methyldopa 250 mg PO DAILY 09/06/17 [History] amLODIPine [Norvasc] 5 mg PO DAILY 09/06/17 [History] atorvaSTATin [Lipitor] 10 mg PO DAILY 09/06/17 [History] Ibuprofen [IJD: Ibuprofen] 600 mg PO TID PRN #30 tablet 09/09/17 [Rx] Pantoprazole [ProTONIX] 40 mg PO DAILY 14 Days #14 tab.cr 09/09/17 [Rx] metroNIDAZOLE [Flagyl] 500 mg PO Q8H #15 tab 09/09/17 [Rx] Referrals: PCP,None [Ordering Only Provider] - (in 2-3 days) - General Info Date of Service: 09/09/17 Admission Dx/Problem (Free Text: Admission Diagnosis/Problem Admission Diagnosis/Problem Abdominal pain Subjective Update: The abdominal pain has much improved. She is having bowel movements. She is feeling much better. Tolerating diet well, walking around on the corridor. Functional Status: Reports: Pain Controlled - Review of Systems General: Denies: Weakness, Fatigue Pulmonary: Denies: Shortness of Breath Cardiovascular: Denies: Chest Pain Gastrointestinal: Reports: Abdominal Pain (Mild, much improved) Neurological: Denies: Confusion - Patient Data Vitals - Most Recent: Last Vital Signs Temp 36.8 C 09/09/17 07:00 Pulse 74 09/09/17 07:00 Resp 20 09/09/17 07:00 BP 137/56 L 09/09/17 09:48 Pulse Ox 95 09/09/17 07:00 Weight - Most Recent: 76.657 kg I&O - Last 24 hours: Intake & Output 09/08/17 09/09/17 09/09/17 22:59 06:59 14:59 Intake Total 710 360 Output Total 300 1000 Balance 410 -1000 360 Lab Results - Last 24 hrs: Laboratory Results - last 24 hr 09/09/17 09/09/17 Range/Units 06:15 06:15 WBC 9.8 (5.0-10.0) 10^3/uL RBC 4.57 (4.2-5.4) 10^6/uL Hgb 13.2 (12.0-16.0) g/dL Hct 39.5 (37.0-47.0) % MCV 86.4 (80-100) fL MCH 28.9 (27.0-34.0) pg MCHC 33.4 (33.0-35.0) g/dL Plt Count 213 (150-450) 10^3/uL Neut % (Auto) 66.0 (42.2-75.2) % Lymph % (Auto) 19.2 L (20.5-50.1) % [place] % (Auto) 9.4 H (2-8) % Eos % (Auto) 4.9 H (1.0-3.0) % Baso % (Auto) 0.5 (0.0-1.0) % Sodium 134 L (135-145) mmol/L Potassium 3.6 (3.6-5.0) mmol/L Chloride 98 L (101-111) mmol/L Carbon Dioxide 26.0 (21.0-31.0) mmol/L Anion Gap 13.6 BUN 17 (7-18) mg/dL Creatinine 0.8 (0.6-1.3) mg/dL Est Cr Clr Drug Dosing 40.21 mL/min Estimated GFR (MDRD) > 60 Glucose 93 (74-105) mg/dL Calcium 8.9 (8.4-10.2) mg/dl WILLIS Results - Last 24 hrs: Microbiology 09/07/17 22:35 Aerobic Blood Culture - Preliminary Blood - Venous - Lab Draw NO GROWTH AFTER 1 DAY Anaerobic Blood Culture - Preliminary NO GROWTH AFTER 1 DAY 09/07/17 22:40 Aerobic Blood Culture - Preliminary Blood - Venous NO GROWTH AFTER 1 DAY Anaerobic Blood Culture - Final Med Orders - Current: Current Medications Amlodipine Besylate (Norvasc) 5 mg PO DAILY [facility] Last Admin: 09/09/17 09:48 Dose: 5 mg Atorvastatin Calcium (Lipitor) 10 mg PO DAILY [facility] Last Admin: 09/09/17 09:47 Dose: 10 mg Heparin Sodium (Porcine) (Heparin Sodium) 5,000 units SUBCUT Q8HR [facility] Last Admin: 09/09/17 06:09 Dose: 5,000 units Hydrochlorothiazide (Hydrochlorothiazide) 25 mg PO DAILY [facility] Last Admin: 09/09/17 09:46 Dose: 25 mg Metronidazole 500 mg/ Premix 100 mls @ 100 mls/hr IV Q8H [facility] Last Admin: 09/09/17 06:09 Dose: 100 mls/hr Ibuprofen (Motrin) 600 mg PO TID [facility] Last Admin: 09/09/17 09:43 Dose: 600 mg Lactulose (Cephulac) 20 gm PO TID [facility] Last Admin: 09/09/17 09:48 Dose: Not Given Methyldopa (Methyldopa) 250 mg PO DAILY [facility] Last Admin: 09/09/17 09:47 Dose: 250 mg Morphine Sulfate (Morphine) 1 mg IVPUSH Q4H PRN PRN Reason: pain 4-10 Last Admin: 09/09/17 03:00 Dose: 1 mg Pantoprazole Sodium (Protonix) 40 mg PO BIDAC [facility] Last Admin: 09/09/17 06:09 Dose: 40 mg Polyethylene Glycol (Miralax) 17 gm PO DAILY PRN PRN Reason: Constipation Sodium Chloride (Saline Flush) 10 ml FLUSH ASDIRECTED PRN PRN Reason: Keep Vein Open Last Admin: 09/07/17 21:09 Dose: 10 ml Zolpidem Tartrate (Ambien) 5 mg PO BEDTIME PRN PRN Reason: Sleep Discontinued Medications Docusate Sodium/Benzocaine (Enemeez Plus Mini Enema) 1 each RECTAL ONETIME ONE Stop: 09/07/17 22:13 Last Admin: 09/07/17 22:39 Dose: 1 each Sodium Chloride (Normal Saline) 1,000 mls @ 999 mls/hr IV .BOLUS ONE Stop: 09/07/17 19:48 Last Admin: 09/07/17 19:24 Dose: 999 mls/hr Potassium Chloride/Sodium Chloride (Normal Saline With 20 Meq Kcl) 1,000 mls @ 75 mls/hr IV ASDIRECTED DION Last Admin: 09/07/17 22:40 Dose: 75 mls/hr Iopamidol (Isovue-300 (61%)) 75 ml IVPUSH ONETIME ONE Stop: 09/07/17 18:25 Last Admin: 09/07/17 19:04 Dose: 75 ml Morphine Sulfate (Morphine) 2 mg IVPUSH ONETIME ONE Stop: 09/07/17 21:03 Last Admin: 09/07/17 21:08 Dose: 2 mg - Exam General: Reports: Alert, Oriented Neck: Reports: Supple Lungs: Reports: Clear to Auscultation, Normal Respiratory Effort GI/Abdominal Exam: Soft, Non-Tender, No Distention Extremities: No Pedal Edema Skin: Reports: Warm, Dry *Q Meaningful Use (DIS) - VTE *Q VTE Criteria *Q: - Stroke *Q Stroke Criteria *Q: - AMI *Q AMI Criteria *Q:
--- NOTE | 2017-09-09 13:28 | EKG ---
09/07/2017- GLORIA HAYES - FINDINGS: EKG per my reading shows sinus rhythm with left bundle-branch block. [facility] /[id number]
== END 2017-09-09 12:35 | disposition home or self-care (01) | DRG 392 ==
LOC: DL.ED 16:46 → UNDOADMOB 21:18 → DL.MS 21:18 → OBSVTOIN 22:16 → DL.MS 22:16
PROVIDERS: ADMIT Internal Medicine; ATTEND Internal Medicine
DX: K63.89 Other specified diseases of intestine (principal); R10.84 Generalized abdominal pain; I10 Essential (primary) hypertension; H54.7 Unspecified visual loss; K44.9 Diaphragmatic hernia without obstruction or gangrene; M19.90 Unspecified osteoarthritis, unspecified site; K59.00 Constipation, unspecified; Z88.0 Allergy status to penicillin; Z88.8 Allergy status to other drugs, medicaments and biological substances; Z79.82 Long term (current) use of aspirin; Z79.899 Other long term (current) drug therapy
CPT/HCPCS: 36415; 74177; 80053; 82550; 82553; 83605; 84484; 85025; 85651; 86140; 93005; 93010; 96361; 96374; 99284; 99285; J2270; J7030; J7050; Q9967; 80048; 81001; 87040; 87086; 87088; 87186; A9270-GY; J1644; J3480